=== PATIENT | female | born 2000 | race Two or more races ===

== ENCOUNTER 2024-11-27 22:25 | Inpatient (IN) ==
[2024-11-27 22:45] VITALS: BMI 45.5
[2024-11-27 22:45] LABS: BLOOD/HEMOGLOBIN,URINE 1+ (NEGATIVE); LEUKOCYTE ESTERASE ,URINE 1+ (NEGATIVE); NITRITES,URINE NEGATIVE (NEGATIVE)
[2024-11-27 22:48] LABS: APPEARANCE,URINE CLEAR (CLEAR); SQUAMOUS EPITHELIAL CELL,UR NUMEROUS /HPF (NEGATIVE)
[2024-11-27 22:57] LABS: AMNISURE ROM TEST NO MEMBRANES RUPTURE (NO RUPTURE)
[2024-11-28] MEDS ORDERED: REGLAN INJ 10 MG VIAL IVP PRN
[2024-11-28] MEDS ORDERED: NUBAIN INJ 20 MG AMP IVP PRN
[2024-11-28] MEDS ORDERED: LR 1,000 ML IV 1,000 ML IV ONE (00:32)
[2024-11-28 00:45] LABS: MEAN PLATELET VOLUME 9.5 fL (7.4-11.0); RED CELL DISTRIBUTION WIDTH 17.4 % (11.6-16.5)
[2024-11-28] MEDS: LR 1,000 ML IV 1,000 ML IV SCH (00:45)
[2024-11-28 00:50] LABS: INR 0.91 (0.8-1.3)
[2024-11-28] MEDS: NS 1,000 ML IV 1,000 ML ONE (00:50)
[2024-11-28] MEDS: PITOCIN ONE ×2 (00:50→07:09)
[2024-11-28] MEDS: OXYTOCIN 20 UNIT/1,000 ML-NS 20 UNIT/1,000 ML PLAST..BAG IV PRN (00:50)
[2024-11-28 00:57] LABS: COR NA(FOR HYPERGLY) 141 mmol/L (136-145); CREATININE 0.52 mg/dL (0.55-1.02); LACTATE DEHYDROGENASE 224 Units/L (81-234); eGFR NON BLACK RACES > 60 (>60)
[2024-11-28] MEDS: NORMODYNE TAB 100 MG ONE (01:06)
[2024-11-28] MEDS: NORMODYNE INJ 100 MG VIAL ONE (06:15)
[2024-11-28] MEDS: NORMODYNE TAB 200 MG PO ONE (06:16)
[2024-11-28] MEDS: ANCEF VIAL 1 GRAM ONE (06:48)
[2024-11-28] MEDS: NS 100 ML IV 100 ML ONE (06:48)
[2024-11-28] MEDS: ZOFRAN INJ 4 MG VIAL ONE (06:54)
[2024-11-28] MEDS: REGLAN INJ 10 MG VIAL ONE (06:54)
[2024-11-28] MEDS: BICITRA 30 ML PO ONE (06:57)
[2024-11-28] MEDS: PEPCID 20 MG VIAL ONE (06:58)
[2024-11-28] MEDS: LIDOCAINE 2%-EPI 1:200,000 ONE ×2 (06:58)
[2024-11-28] MEDS: LR 1,000 ML IV 1,000 ML IV PRN (07:00)
[2024-11-28] MEDS: ANCEF VIAL 1 GRAM IV PRN (07:05)
[2024-11-28] MEDS: OFIRMEV IV 1000 MG VIAL 1,000 MG/100 ML VIAL IV ONE (07:09)
[2024-11-28] MEDS: OFIRMEV IV 1000 MG VIAL 1,000 MG/100 ML VIAL IV PRN (07:30)
[2024-11-28] MEDS ORDERED: PITOCIN IVP PRN (07:48)
[2024-11-28] MEDS ORDERED: ZOFRAN INJ 4 MG VIAL IVP PRN ×2 (07:50)
[2024-11-28] MEDS ORDERED: DILAUDID INJ IVP PRN (07:50)
[2024-11-28] MEDS ORDERED: MORPHINE SULFATE INJ 2 MG INJ IVP PRN (08:08)
[2024-11-28] MEDS: ZOFRAN INJ 4 MG VIAL IVP SCH (09:28)
[2024-11-28] MEDS: PRENATAL PLUS PO SCH (09:28)
[2024-11-28] MEDS: TORADOL 30 MG VIAL IVP PRN (12:12)
[2024-11-28] MEDS: PITOCIN IVP ONE (15:22)
[2024-11-28] MEDS: BETADINE SOLN ONE (15:22)
[2024-11-28] MEDS: FENTANYL VIAL INJ 100 mcg ONE (15:23)
[2024-11-28] MEDS: NAROPIN EPIDURAL 0.2% 100 ML ONE (15:23)
[2024-11-28] MEDS: LR 1,000 ML IV 1,000 ML IV ONE (15:23)
[2024-11-28] MEDS: MYLICON TAB 80 MG CHEW PO PRN (20:01)
[2024-11-28] MEDS: PERCOCET TAB 5/325 MG PO PRN (22:59)
[2024-11-29] MEDS: OXYTOCIN 20 UNIT/1,000 ML-NS 20 UNIT/1,000 ML PLAST..BAG IV SCH (00:25)
[2024-11-29] MEDS: MOTRIN TAB 800 MG PO PRN (08:53)
[2024-11-29] MEDS: BENADRYL INJ 50 MG VIAL IVP PRN (08:54)
[2024-11-29] MEDS: NS 100 ML IV 100 ML with VENOFER 400 MG IV ONE (10:13)
[2024-11-29] MEDS: ZESTORETIC 20/25 MG PO SCH (10:27)
[2024-11-29] MEDS: GLUCOPHAGE XR 24-HR PO SCH (21:00)
[2024-11-30 05:58] VITALS: RESP 20
[2024-11-30 08:59] VITALS: BP 139/74; PULSE 92; TEMP 98.3; O2SAT 99
[2024-11-30] MEDS: ADACEL or BOOSTRIX TDaP VACCINE IM ONE (10:08)
== END 2024-11-30 11:04 | disposition home or self-care (01) | DRG 787 ==
LOC: ER 22:25 → LD 11-28 → MED/SURG 11-28 08:20
PROVIDERS: ADMIT Obstetrics & Gynecology Obstetrics; ATTEND Obstetrics & Gynecology Obstetrics
DX: Z37.0 Single live birth; O24.113 Pre-existing type 2 diabetes mellitus, in pregnancy, third trimester; O10.913 Unspecified pre-existing hypertension complicating pregnancy, third trimester; O64.1XX0 Obstructed labor due to breech presentation, not applicable or unspecified; Z3A.39 39 weeks gestation of pregnancy